=== PATIENT | male | born 1990 | race Caucasian/White ===

== ENCOUNTER 2018-09-22 01:14 | Emergency (ER) | payer OTHER ==
[2018-09-22] MEDS ORDERED: Ketorolac Tromethamine 60 MG/2 ML VIAL ONE (01:53)
--- NOTE | 2018-09-22 08:29 | RAD ---
SINGLE VIEW OF CHEST: Date: 09/22/18 COMPARISON: None. HISTORY: Chest pain. FINDINGS: Single view of the chest shows a normal sized cardiomediastinal silhouette. There is no evidence of c onsolidation, mass, or pleural effusion. The bones are unremarkable. IMPRESSION: No evidence of acute cardiopulmonary disease. POS: [facility]
== END 2018-09-22 03:10 | disposition still patient (30) ==
LOC: ERS 01:14
DX: R07.89 Other chest pain (principal); Z71.6 Tobacco abuse counseling
CPT/HCPCS: 71045; 93005; 96372; 99406; J1885